=== PATIENT | female | born 1990 | race African-American/Black ===

== ENCOUNTER 2021-01-23 20:56 | Emergency (ER) | payer OTHER ==
[2021-01-23 21:13] VITALS: BP 100/65; PULSE 93; TEMP 98; BMI 25.0
[2021-01-23] MEDS ORDERED: KETOROLAC TROMETHAMINE 60 MG/2 ML VIAL IM ONE (21:53)
[2021-01-23] MEDS ORDERED: METHOCARBAMOL 500 MG TABLET PO ONE (21:53)
[2021-01-23] MEDS ORDERED: KETOROLAC TROMETHAMINE 60 MG/2 ML VIAL ONE (21:55)
[2021-01-23] MEDS ORDERED: METHOCARBAMOL 500 MG TABLET ONE (21:55)
[2021-01-23 22:05] LABS: HCG,QUALITATIVE URINE Negative
[2021-01-23 23:07] LABS: EPI CELLS 19 /uL (0-25.1); HYALINE CASTS 5 /uL (0-3.1); URINE APPEARANCE CLOUDY; URINE BACTERIA 969 /uL (0-1359); URINE BILIRUBIN NEGATIVE (NEGATIVE); URINE COLOR YELLOW; URINE GLUCOSE (UA) NEGATIVE (NEGATIVE); URINE KETONE TRACE (NEGATIVE); URINE LEUK ESTERASE NEGATIVE (NEGATIVE); URINE NITRITE NEGATIVE (NEGATIVE); URINE PROTEIN TRACE (NEGATIVE); URINE WBC 24 /uL (0-25.8)
[2021-01-23] MEDS ORDERED: SODIUM CHLORIDE 1,000 ML IV STA (23:13)
[2021-01-23 23:20] LABS: URINE RBC 488.8 /uL (0-23.9)
[2021-01-23 23:35] LABS: BASO % 0.9 % (0-2.0); EOS % 1.4 % (0-4.5); HEMATOCRIT 37.4 % (32.4-45.2); HEMOGLOBIN 12.7 GM/dL (10.7-15.3); LYMPH % 22.6 % (8-40); MCH 30.2 pg (25.7-33.7); MCHC 33.8 g/dl (32.0-36.0); MEAN CELL VOLUME 89.4 fl (80-96); MONO % 7.8 % (3.8-10.2); NEUT % 67.3 % (42.8-82.8); PLATELET COUNT 326 10^3/uL (134-434); RBC 4.19 M/mm3 (3.60-5.2); RDW 13.3 % (11.6-15.6)
[2021-01-23 23:55] LABS: CALCIUM 9.3 mg/dL (8.5-10.1)
[2021-01-23 23:56] LABS: ALBUMIN 4.2 g/dl (3.4-5.0); BLOOD UREA NITROGEN 16.6 mg/dL (7-18)
[2021-01-23 23:59] LABS: CREATININE 1.4 mg/dL (0.55-1.3)
[2021-01-24] LABS: BILIRUBIN,TOTAL 0.6 mg/dL (0.2-1)
== END 2021-01-24 02:04 | disposition home or self-care (01) ==
LOC: JERFT 20:56 → JER 20:56
PROC: 3E023GC Introduction of Other Therapeutic Substance into Muscle, Percutaneous Approach (ICD-10-PCS; principal; 2021-01-23)
PROC: 3E0337Z Introduction of Electrolytic and Water Balance Substance into Peripheral Vein, Percutaneous Approach (ICD-10-PCS; principal; 2021-01-23)
DX: R10.9 Unspecified abdominal pain (principal); R31.9 Hematuria, unspecified
CPT/HCPCS: 36415; 74176-TC; 80053; 81003; 84703; 85025; 87086; 99285-25

== ENCOUNTER 2021-11-05 10:52 | Emergency (ER) | payer OTHER ==
[2021-11-05 11:25] VITALS: BP 110/71; PULSE 85; TEMP 98.6; BMI 24.5
== END 2021-11-05 12:50 | disposition home or self-care (01) ==
LOC: JERFT 10:52
DX: M79.672 Pain in left foot (principal)
CPT/HCPCS: 99282-25